=== PATIENT | male | born 1970 | race Two or more races ===

== ENCOUNTER 2019-02-04 03:44 | Inpatient (IN) | payer OTHER ==
[2019-02-04] VITALS (37 sets, daily range): BP systolic 95–130; BP diastolic 62–86
[~2019-02-04] VITALS: Ht 175.3 cm; Wt 93.0 kg
[2019-02-04] MEDS ORDERED: ADENOSINE 3 MG/ML 2ML VIAL IV ONE ×4 (03:53→04:00)
[2019-02-04] MEDS ORDERED: SODIUM CHLORIDE 0.9% 1,000 ML IV ONE ×2 (03:57→04:45)
[2019-02-04] MEDS ORDERED: DILTIAZEM HCL 125 MG in DEXT 5% WATER 100 ML IV ONE (04:00)
[2019-02-04] MEDS ORDERED: DILTIAZEM HCL 5MG/ML 5ML VIAL IV ONE ×4 (04:00→04:03)
[2019-02-04] MEDS ORDERED: CALCIUM GLUCONATE 100MG/ML 10ML VIAL IV ONE (04:15)
[2019-02-04] MEDS ORDERED: ONDANSETRON HCL 4MG/2ML INJ IV ONE (04:15)
[2019-02-04 04:20] LABS: CHLORIDE 106 mEq/L (98-107)
[2019-02-04 04:24] LABS: ETHANOL BLOOD < 10 mg/dL
[2019-02-04 04:25] LABS: BASOPHILS % 0.5 % (0.0-2.0); EOSINOPHILS % 0.9 % (0.0-5.0); HEMATOCRIT. 39.2 % (42.0-52.0); HEMOGLOBIN. 12.6 g/dL (14.0-18.0); LYMPHOCYTES % 51.8 % (20.0-50.0); MEAN CORPUSCULAR VOLUME 62.1 fL (80.0-94.0); MEAN PLATELET VOLUME 9.1 fl (7.4-10.4); NEUTROPHILS % 40.8 % (40.0-76.0); PLATELET 268 x1000/uL (130-400); RED BLOOD CELL COUNT 6.32 mill/uL (4.7-6.1); RED CELL DISTRIBUTION WIDTH 16.3 % (11.6-14.6)
[2019-02-04 04:26] LABS: D-DIMER < 0.19 mg/L FEU (<0.50); PARTIAL THROMBOPLASTIN TIME 27.3 sec (23.4-31.0); PROTHROMBIN TIME 10.1 sec (9.6-11.0)
[2019-02-04 04:29] LABS: T4 FREE 1.17 ng/dL (0.76-1.46)
[2019-02-04] MEDS ORDERED: CALCIUM GLUCONATE 1,000 MG in DEXTROSE 5% WATER 50 ML IV SCH (04:30)
[2019-02-04] MEDS ORDERED: DIGOXIN 500MCG/2ML AMP IV ONE (04:30)
[2019-02-04 04:49] LABS: PLATELET ESTIMATE NORMAL
[2019-02-04 05:12] LABS: CLARITY URINE CLEAR (CLEAR); COLOR URINE YELLOW (YELLOW); KETONES URINE NEGATIVE (NEGATIVE); LEUKOCYTE ESTERASE URINE NEGATIVE (NEGATIVE); NITRITE URINE NEGATIVE (NEGATIVE); OCCULT BLOOD URINE NEGATIVE (NEGATIVE); PH URINE 6.5 (4.5-8.0); PROTEIN URINE NEGATIVE (NEGATIVE); SPECIFIC GRAVITY URINE 1.004 (1.005-1.030); UROBILINOGEN URINE 0.2 E.U./dL (0.2-1.0)
[2019-02-04 05:27] LABS: *AMPHETAMINES SCREEN URINE NEGATIVE (NEGATIVE); *BARBITURATES SCREEN URINE NEGATIVE (NEGATIVE); *BENZODIAZEPINES SCREEN URINE NEGATIVE (NEGATIVE); *COCAINE SCREEN URINE NEGATIVE (NEGATIVE); CANNABINOID URINE SCREEN NEGATIVE (NEGATIVE); METHADONE URINE SCREEN NEGATIVE (NEGATIVE); OPIATES URINE SCREEN NEGATIVE (NEGATIVE); PHENCYCLIDINE URINE SCREEN NEGATIVE (NEGATIVE)
[2019-02-04] MEDS ORDERED: ACETAMINOPHEN 325MG TABLET PO PRN (08:00)
[2019-02-04] MEDS ORDERED: GUAIFENESIN 200MG/10ML SUGAR FREE UDC PO PRN (08:00)
[2019-02-04] MEDS ORDERED: CLONIDINE 0.1MG TABLET PO PRN (08:00)
[2019-02-04] MEDS ORDERED: ONDANSETRON HCL 4MG/2ML INJ IV PRN (08:00)
[2019-02-04] MEDS ORDERED: IPRATROPIUM/ALBUTEROL 0.5-3(2.5)MG/3ML NEB NEB PRN (08:00)
[2019-02-04] MEDS ORDERED: MAGNESIUM/ALUMINUM HYDROXIDE/SIMETHICONE 30ML UDC PO PRN (08:00)
[2019-02-04] MEDS ORDERED: NITROGLYCERIN 0.4MG TABLET SL SL PRN (08:00)
[2019-02-04] MEDS ORDERED: DOCUSATE SODIUM 100MG CAPSULE PO PRN (08:00)
[2019-02-04] MEDS ORDERED: ZOLPIDEM TARTRATE 5MG TABLET PO PRN (08:00)
[2019-02-04] MEDS ORDERED: TRAMADOL 50MG TABLET PO PRN (08:00)
[2019-02-04] MEDS: GUAIFENESIN 600MG ER TABLET PO SCH ×2 (09:00→20:45)
[2019-02-04] MEDS: ENOXAPARIN 100MG/ML SYR SUBCUT SCH ×2 (09:49→20:45)
[2019-02-04] MEDS: FAMOTIDINE 20MG TABLET PO SCH ×2 (09:50→20:45)
[2019-02-04] MEDS: DILTIAZEM HCL 60MG TABLET PO SCH ×2 (12:00→18:13)
[2019-02-04] MEDS ORDERED: DIATR MEGLU/DIATRIZOATE SOLN 30ML PO SCH (16:30)
[2019-02-04 17:30] LABS: CREATINE KINASE MB FRACTION 1.3 ng/mL (0.5-3.6)
[2019-02-04] MEDS: SUCRALFATE 1 G/10 ML UDC PO SCH ×2 (17:39→20:45)
[2019-02-04 17:40] LABS: FOLIC ACID (FOLATE) SERUM >20 ng/mL ng/mL (>5.38)
[2019-02-04 17:53] LABS: VITAMIN B12 SERUM 307 pg/mL (211-911)
[2019-02-04 23:30] LABS: CREATINE KINASE MB FRACTION 1.1 ng/mL (0.5-3.6)
[2019-02-05] VITALS (16 sets, daily range): BP systolic 94–140; BP diastolic 50–96
[2019-02-05] MEDS: DILTIAZEM HCL 60MG TABLET PO SCH ×2 (00:52→06:00)
[2019-02-05 05:23] LABS: BASOPHILS % 0.5 % (0.0-2.0); EOSINOPHILS % 1.4 % (0.0-5.0); HEMATOCRIT. 37.4 % (42.0-52.0); HEMOGLOBIN. 11.9 g/dL (14.0-18.0); LYMPHOCYTES % 52.8 % (20.0-50.0); MEAN CORPUSCULAR HEMOGLOBIN 19.5 pg (28.0-32.0); MEAN CORPUSCULAR VOLUME 61.4 fL (80.0-94.0); MEAN PLATELET VOLUME 8.9 fl (7.4-10.4); MONOCYTES % 6.2 % (2.0-8.0); NEUTROPHILS % 39.1 % (40.0-76.0); PLATELET 215 x1000/uL (130-400); RED BLOOD CELL COUNT 6.09 mill/uL (4.7-6.1); RED CELL DISTRIBUTION WIDTH 16.1 % (11.6-14.6)
[2019-02-05 05:53] LABS: CHLORIDE 110 mEq/L (98-107)
[2019-02-05] MEDS ORDERED: DIATR MEGLU/DIATRIZOATE SOLN 30ML PO SCH ×2 (07:15→07:45)
[2019-02-05] MEDS: SUCRALFATE 1 G/10 ML UDC PO SCH ×3 (07:24→17:18)
[2019-02-05] MEDS: GUAIFENESIN 600MG ER TABLET PO SCH (08:45)
[2019-02-05] MEDS: FAMOTIDINE 20MG TABLET PO SCH (08:45)
[2019-02-05] MEDS: ENOXAPARIN 100MG/ML SYR SUBCUT SCH (08:46)
[2019-02-05] MEDS ORDERED: ASPIRIN 81MG EC TABLET PO SCH (09:00)
[2019-02-05] MEDS ORDERED: METOPROLOL TARTRATE 50MG TABLET PO SCH (09:00)
[2019-02-05] MEDS ORDERED: IOHEXOL-300 100 ML BOTTLE ONE (14:49)
[2019-02-05] MEDS ORDERED: ASPI-1393 MT (15:27)
[2019-02-05] MEDS ORDERED: FAMO-135 MT (15:27)
[2019-02-05] MEDS ORDERED: METO-539 MT (15:27)
== END 2019-02-05 17:40 | disposition home or self-care (01) | DRG 308 ==
LOC: ER 03:44 → CVICU 04:22 → ENRESERV 07:19 → 5EST 02-05 10:03
PROVIDERS: ADMIT Internal Medicine; ATTEND Internal Medicine
DX: I48.0 Paroxysmal atrial fibrillation (principal); I50.33 Acute on chronic diastolic (congestive) heart failure; D64.9 Anemia, unspecified; R73.9 Hyperglycemia, unspecified; I11.0 Hypertensive heart disease with heart failure; E86.0 Dehydration; Z87.19 Personal history of other diseases of the digestive system; Z79.899 Other long term (current) drug therapy
CPT/HCPCS: 36415; 71045; 74177; 80048; 80061; 80305; 80320; 81003; 82550; 82553; 82607; 82746; 83036; 83540; 83550; 83880; 84439; 84443; 84484; 85379; 93005; 93306; 93970; 96365; 96367; 96375; 99291; J0153; J0610; J1160; J1650; J2405; J3490; J7030; J7060; Q9963; Q9967; G0480

== ENCOUNTER 2019-03-29 01:22 | Emergency (ER) | payer OTHER ==
[~2019-03-29] VITALS: Ht 175.3 cm; Wt 82.3 kg
[~2019-03-29 01:22] MED LIST: ASPI-1497 MT; FAMO-135 MT; METO-539 MT
[2019-03-29 02:06] VITALS: BP 123/84
== END 2019-03-29 06:02 | disposition left against medical advice (07) ==
LOC: ER 01:22
DX: Z53.21 Procedure and treatment not carried out due to patient leaving prior to being seen by health care provider (principal); R07.9 Chest pain, unspecified; R11.2 Nausea with vomiting, unspecified
CPT/HCPCS: 93005